=== PATIENT | female | born 1995 | race Hispanic/Latino ===

== ENCOUNTER 2021-05-08 14:37 | Emergency (ER) | payer MEDICAID | END 2021-05-08 17:40 | disposition left against medical advice (07) | LOC: ED 14:37 | DX: R10.30 Lower abdominal pain, unspecified (principal); Z53.21 Procedure and treatment not carried out due to patient leaving prior to being seen by health care provider | CPT/HCPCS: 36415; 80053; 81001; 84550; 85025; 85652; 87116; 93970; J3010; U0003 ==

== ENCOUNTER 2021-06-26 10:14 | Outpatient (CLI) | payer MEDICAID ==
[2021-06-26 11:58] LABS: Blood Urea Nitrogen 11 mg/dL (7-17)
--- NOTE | 2021-06-26 13:20 | Cat Scan Report ---
CT pelvis w con INDICATION: PELVIC AND PERINEAL PAIN OMNI 300 100 ML. TECHNIQUE: All CT scans at this location are performed using CT dose reduction for ALARA by means of automated e xposure control. COMPARISON: None available. FINDINGS: There is a moderate amount of fluid within the endometrial canal which is distended measuring 3.5 cm. Adnexal structures appear unremarkable. There is no free pelvic fluid. No adenopathy. Visualized por tions of bowel appear unremarkable. No fracture, dislocation or skeletal abnormality is seen within t he pelvis or either hip. Both hip and SI joints are well-preserved IMPRESSION: 1. Distended fluid-filled endometrium. Please correlate with LMP. 2. Otherwise negative pelvic CT Signer Name: Harinder Foster MD Signed: 06/26/2021 1:16 PM Workstation Name: [id number]
--- NOTE | 2021-06-26 14:18 | Cat Scan Report ---
CT LUMBAR SPINE: 06/26/2021 INDICATION / CLINICAL INFORMATION: MASS OF BACK. COMPARISON: None available. FINDINGS: CT images of the lumbar spine were obtained. Images are evaluated in the axial, coronal, and sagittal planes. There is no evidence of acute abnormality. Vertebral body alignment is well preserved. There is no e vidence of disc herniation or nerve root compression. There is no evidence of foraminal narrowing. PARASPINAL STRUCTURES: Unremarkable. IMPRESSION: No significant abnormality. Thoracic spine CT is also obtained and reported separately. All CT scans at this location are performed using dose reduction to ALARA by means of automated expos ure control. Signer Name: Bert Jamison MD Signed: 06/26/2021 2:14 PM Workstation Name: [id number]
--- NOTE | 2021-06-26 16:25 | Cat Scan Report ---
CT THORACIC SPINE WITHOUT CONTRAST INDICATION / CLINICAL INFORMATION: MASS OF BACK. TECHNIQUE: Axial CT images were obtained through the thoracic spine. Sagittal and coronal reformatted images wer e produced. All CT scans at this location are performed using CT dose reduction for ALARA by means of automated exposure control. COMPARISON: None available. FINDINGS: VERTEBRAE: No indication of fracture or bone destruction. ALIGNMENT: Normal alignment is maintained throughout the thoracic region. DISC SPACES: Disc height is adequately maintained. FACET and COSTOVERTEBRAL JOINTS: No significant arthritic changes are identified. CERVICOTHORACIC JUNCTION:No significant abnormality. SPINAL CANAL: Thoracic spinal canal is generous in size throughout. PARASPINAL SOFT TISSUES: A small renal stone is present in a lower pole calyx on the left. Paraspinou s muscles have an otherwise normal appearance. Incidental abnormalities are identified. Visualized ri bs have an unremarkable appearance. ADDITIONAL FINDINGS: None. LUNGS: Visualized portions the lung are free from confluent infiltrate. No lung nodules are identifie d. There is no indication of pleural effusion. IMPRESSION: 1. No significant abnormality on CT thoracic spine. 2. The area of clinical concern was not marked for this examination. It is not possible to be complet erica certain that the region of interest was included on this examination. Signer Name: Ben Puga MD Signed: 06/26/2021 4:20 PM Workstation Name: [email or web address]
== END 2021-06-26 10:15 | disposition home or self-care (01) ==
LOC: CT 10:14
PROVIDERS: ATTEND Obstetrics & Gynecology
DX: N20.0 Calculus of kidney (principal); R10.2 Pelvic and perineal pain; R22.2 Localized swelling, mass and lump, trunk
CPT/HCPCS: 36415; 72128; 72131; 72193; 82565; 84520; Q9967